=== PATIENT | male | born 1985 | race Caucasian/White ===

== ENCOUNTER 2022-07-16 10:11 | Emergency (ER) | payer SELFPAY ==
--- NOTE | ~2022-07-16 | CT_ITS ---
EXAMINATION: CT lumbar spine wo con DATE: 07/16/2022 11:32 INDICATION: Low back pain. TECHNIQUE: Computed tomography (CT) of the lumbar spine was performed without intravenous contrast. A utomated exposure control and iterative reconstruction technique were employed. The dose-length produ ct was 998.12 mGy-cm. COMPARISON: None FINDINGS: Bone alignment is normal. There is mild chronic anterior wedging of T12 and L1 vertebral yomi dies. There is mildly decreased disc height at L2-L3 and L5-S1. The following disc levels are specifi kole discussed: L1-L2: The disc does not extend beyond the endplate margin. There is mild bilateral facet joint osteo arthritis. There is no neural foraminal stenosis. There is no central canal stenosis. L2-L3: The disc is bulging. There is mild bilateral facet joint osteoarthritis. There is mild bilater al neural foraminal stenosis. There is mild central canal stenosis. L3-L4: The disc is mildly bulging. There is mild bilateral facet joint osteoarthritis. There is mild bilateral neural foraminal stenosis. There is no central canal stenosis. L4-L5: The disc is bulging. There is mild bilateral facet joint osteoarthritis. There is mild bilater al neural foraminal stenosis. There is no central canal stenosis. L5-S1: The disc is bulging. There is mild right facet joint osteoarthritis. There is mild bilateral n eural foraminal stenosis. There is mild central canal stenosis. IMPRESSION: 1. Mild lumbar spondylosis. Reviewed, dictated and finalized at location A. IMPRESSION: 1. Mild lumbar spondylosis.
[2022-07-16 10:27] VITALS: BP 136/81; PULSE 84; RESP 16; TEMP 36.3; O2SAT 99
[2022-07-16] MEDS: diazePAM INJ (*CRX) 10 MG/2 ML SYRINGE 2 MG IM (11:19)
[2022-07-16] MEDS: KETOROLAC 30 MG/ML VIAL (*BKC) IM (11:19)
--- NOTE | 2022-07-16 12:01 | ED.BACK ---
HPI - Back Pain/Injury General Chief Complaint: Back Pain/Injury Stated Complaint: low back pain Time Seen by Provider: 07/16/22 10:41 History of Present Illness HPI Narrative: This 37-year-old male patient with no significant past medical history related to today's complaint presents to the emergency room with complaints of having severe back pain that 1st started yesterday while he was at work. 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 He has had continued pain no matter what he has tried that is made worse by movement of his legs as well as by twisting. He denies any radiation of pain into the legs but the pain is made worse by movement of the legs. He also denies any loss of bowel or bladder control and no saddle anesthesia. Patient denies any other injury such as accidental fall or other trauma is. [id number] medication has not helped his pain. He has no known history of any back injuries and/or pathology/ Chronic issues. patient is tearful when asked to do modalities of straight leg raising. Pain scale (0-10): 10 Related Data Allergies Allergy/AdvReac Type Severity Reaction Status Date / Time No Known Allergies Allergy Mild Verified 07/16/22 10:30 Review of Systems Review of Systems: Full 12 point review of systems was performed and is otherwise negative except as noted in HPI. All systems reviewed & are unremarkable except as noted in HPI and below Exam Const: General: healthy appearing and alert; No no acute distress ( Appears to have acute pain distress.) Nutritional Appearance: well nourished Orientation/consciousness: patient oriented x3 Limitations: no limitations HENMT: Head: normal to inspection Eyes: Conjunctivae: conjunctivae normal Neck: Neck: normal visual inspection and no lymphadenopathy Chest: Chest palpation & inspection: normal inspection of the chest and no tenderness Resp: Effort & Inspection: normal respiratory effort Auscultation: clear to auscultation bilaterally Cardio: Rate: regular rate Rhythm: regular rhythm Heart sounds: no murmurs GI: Inspection: non-distended GI Palp: Yes Soft to palpation, No Tenderness to palpation present (GI), No Guarding due to palpation present (GI), No Rigid due to palpation and No Hernia present Auscultation: normal bowel sounds Back/Spine/Pelvis: Back: no CVA tenderness Other: lumbar paraspinal tenderness noted. No midline tenderness appreciated. No palpable spasms. No step-offs. Skin: General skin exam: normal color Rashes: no rashes Neuro: General: patient oriented x3, moves all extremities and no focal motor deficits Speech: normal speech Gait exam (Neuro): Normal gait present Other: No focal deficits noted. Patient has negative straight leg raises. Patient has negative contralateral straight leg raises as well. Patient has intact strength of the bilateral lower extremities at 5/5 and intact patellar reflexes bilaterally of 2+. Extrem: General: normal to inspection, no clubbing, cyanosis or edema and no pedal edema Psych: Mental Status: mental status grossly normal Affect: normal affect Course Course Emergency Course: Differential diagnosis: Lumbago, spinal stenosis, spondylolisthesis, muscle strain VSS imaging: Patient with multilevel bulging discs in the lumbar spine. Symptomatic management was performed with some improvement in patient's pain. He does note that it still remains to a certain degree although it is improved. Patient was given referral to a primary care physician for most likely outpatient MRI. He may participate at work as tolerated. Patient discharged home with a limited prescription of Flexeril. Vital Signs Vital signs: Vital Signs Temperature 97.3 F L 07/16/
== END 2022-07-16 12:40 | disposition home or self-care (01) ==
PROVIDERS: Emergency Provider Nurse Practitioner Adult Health
DX: M51.36 Other intervertebral disc degeneration, lumbar region (principal)
CPT/HCPCS: 72131; 96372; 99284; J1885; J3360